=== PATIENT | male | born 1995 | race Hispanic/Latino ===

== ENCOUNTER 2017-06-05 14:23 | Inpatient (IN) | payer BC ==
--- NOTE | 2017-06-05 14:48 | ED PDOC ---
Lower Extremity Pain/Injury Time Seen by Provider: 06/05/17 14:43 Chief Complaint (Nursing): Lower Extremity Problem/Injury Chief Complaint (Provider): Left knee injury History Per: Patient History/Exam Limitations: no limitations Onset/Duration Of Symptoms: Mins Current Symptoms Are (Timing): Still Present Additional History Per: EMS Additional Complaint(s): 21 y/o male brought to the ED by EMS for evaluation of left knee injury sustained just prior to arrival. Patient states while playing soccer today he jumped up and landed on the left leg at a weird angle. Not able to bear weight on the left leg following injury. Pain is rated 6/10. Now c/o left knee pain and swelling. Patient did not receive any pain medications prior to arrival. PMD: provider ADY Past Medical History Reviewed: Historical Data, Nursing Documentation, Vital Signs Vital Signs: Last Vital Signs Temp 98.4 F 06/05/17 14:27 Pulse 78 06/05/17 14:27 Resp 18 06/05/17 14:27 BP 134/75 06/05/17 14:27 Pulse Ox 99 06/05/17 14:27 - Medical History PMH: No Chronic Diseases - Family History Family History: States: Unknown Family Hx - Home Medications Home Medications: Ambulatory Orders Medication Instructions Recorded No Known Home Med 06/05/17 - Allergies Allergies/Adverse Reactions: Allergies Allergy/AdvReac Type Severity Reaction Status Date / Time amoxicillin Allergy RASH Verified 06/05/17 22:14 cefuroxime [From Ceftin] Allergy RASH Verified 06/05/17 22:14 Review of Systems ROS Statement: Except As Marked, All Systems Reviewed And Found Negative Musculoskeletal: Positive for: Other (left knee pain and swelling) Neurological: Positive for: Weakness (difficulty bending left knee secondary to pain). Negative for: Numbness, Other (tingling) Physical Exam - Reviewed Nursing Documentation Reviewed: Yes Vital Signs Reviewed: Yes - Physical Exam Appears: Positive for: No Acute Distress Head Exam: Positive for: ATRAUMATIC, NORMOCEPHALIC Skin: Positive for: Normal Color. Negative for: Rash Eye Exam: Positive for: Normal appearance Extremity: Positive for: Tenderness (Patient describes tenderness diffusely to left knee), Swelling (moderate effusion to left knee), Other (Exam limited secondary to pain) Neurologic/Psych: Positive for: Alert, Oriented (x3) - Laboratory Results Result Diagrams: 06/05/17 15:55 06/05/17 15:55 - ECG O2 Sat by Pulse Oximetry: 99 (RA) Pulse Ox Interpretation: Normal - Progress ED Course And Treament: XR LEFT KNEE: ? fx of tibia GIVEN MORPHINE 4 MG IV x1, TORADOL 15 MG IV x1 Pain uncontrolled. Dilaudid 0.5 mg iv x 1 dose; zofran 4 mg iv x [address] of knee obtained. CT LEFT KNEE: FINDINGS: There is a comminuted impacted fracture of the lateral tibial plateau posterior margins with the posterior half of the tibial plateau impacted up to 2.6 cm deep to its expected cortical location. Fracture plane also crosses to involve the inferior margins of the medial right tibial plateau which is not depressed. The visualized distal femur is intact without fracture as well as the patella. Hemarthrosis is identified within the joint space is well as suprapatellar bursa. No subluxation or dislocation. No suspicious extra capsular findings. The patellar tendon grossly appears intact. IMPRESSION: Gross lateral tibial plateau fracture with comminution and approximate 2.6 cm impaction as described above. No dislocation or subluxation. Cvht-[id number]-arvuwzed hemarthrosis. Findings reviewed and discussed with Roland COFFMAN with written down and read back verification 06/05/2017 4:15 p.m. d/w Dr. Childs. Will place in knee immobilizer. Will order MRI tomorrow for evaluation of injury. Dilaudid 1 mg iv x 1 dose; Time: 18:38 Patient will be admitted inpatient to med/surg for tibial fracture, under the service of Dr. Shannon. Medical Decision Making Medical Decision Making: Impression: Left knee injury Time: 14:45 Plan: --Motrin 600 mg PO --X-ray left knee Patient informed of all diagnostic results. Scribe Attestation: Documented by Karime Bucio, acting as a scribe for Suha Nixon PA-C Provider Scribe Attestation: All medical record entries made by the Scribe were at my direction and personally dictated by me. I have reviewed the chart and agree that the record accurately reflects my personal performance of the history, physical exam, medical decision making, and the department course for this patient. I have also personally directed, reviewed, and agree with the discharge instructions and disposition. Disposition - Clinical Impression Clinical Impression: Fracture of tibia - Patient ED Disposition Is Patient to be Admitted: Yes Discussed With DrXochitl: Kan Shannon Doctor Will See Patient In The: Hospital Counseled Patient/Family Regarding: Studies Performed, Diagnosis - Disposition Disposition Time: 18:38 Condition: FAIR - Pt Status Changed To: Hospital Disposition Of: Inpatient - Admit Certification Admit to Inpatient:: After my assessment, the patient will require hospitalization for at least two midnights. This is because of the severity of symptoms shown, intensity of services needed, and/or the medical risk in this patient being treated as an outpatient. - POA Present On Arrival: Falls Or Trauma
--- NOTE | 2017-06-05 15:18 | RAD ---
PROCEDURE: Left Knee Radiographs. HISTORY: Posttraumatic left knee pain COMPARISON: None. FINDINGS: BONES: Normal. No fracture. JOINTS: Normal. No osteoarthritis. JOINT EFFUSION: None. OTHER FINDINGS: None. IMPRESSION: Normal radiographs of the left knee.
[2017-06-05 16:09] LABS: BASO % 0.3 % (0.0-2.0); EOS # 0.1 K/uL (0.0-0.7); EOS % 0.4 % (0.0-4.0); HEMOGLOBIN 14.2 g/dL (12.0-18.0); LYMPH # 1.3 K/uL (1.0-4.3); LYMPH % 9.5 % (20.0-40.0); MEAN CELL VOLUME 87.3 fl (80.0-94.0); MEAN CORPUSCULAR HEMOGLOBIN 29.8 pg (27.0-31.0); MEAN CORPUSCULAR HGB CONC 34.2 g/dL (33.0-37.0); MEAN PLATELET VOLUME 9.3 fl (7.2-11.7); MONO # 0.8 K/uL (0.0-0.8); MONO % 5.7 % (0.0-10.0); NEUT # 11.6 K/uL (1.8-7.0); NEUT % 84.1 % (50.0-75.0); NRBC % 0.1 % (0.0-0.0); PLATELET COUNT 204 K/uL (130-400); RBC 4.76 Mil/uL (4.40-5.90); RED CELL DISTRIBUTION WIDTH 13.5 % (11.5-14.5); WHITE BLOOD COUNT 13.8 K/uL (4.8-10.8)
[2017-06-05 16:18] LABS: BLOOD UREA NITROGEN 14 mg/dl (9-20); GFR AFRICAN-AMERICAN > 60; GFR NON-AFRICAN AMERICAN > 60
[2017-06-05 16:19] LABS: CALCIUM 9.3 mg/dL (8.4-10.2)
[2017-06-05 16:23] LABS: INR 1.1 (0.9-1.2); PARTIAL THROMBOPLASTIN TIME 29.4 Seconds (25.6-37.1); PROTHROMBIN TIME 12.7 Seconds (9.8-13.1)
[2017-06-05] MEDS ORDERED: HYDROmorphone 0.5 mg/0.5 ml ISec IVP STA ×3 (16:44→19:50)
[2017-06-05] MEDS ORDERED: HYDROmorphone 0.5 mg/0.5 ml ISec ONE ×3 (16:52→19:54)
--- NOTE | 2017-06-05 17:01 | CT ---
PROCEDURE: RIGHT KNEE CT WITHOUT CONTRAST HISTORY: KNEE INJURY COMPARISON: Right knee radiographs 06/05/2017. TECHNIQUE: A volumetric CT acquisition was performed through the right knee without intravenous contrast. Reformatted datasets provided in sagittal, axial and coronal planes. Radiation dose:Total exam DLP = 556.58 mGy-cm.This This CT exam was performed using one or more of the following dose reduction techniques: Automated exposure control, adjustment of the mA and/or kV according to patient size, and/or use of iterative reconstruction technique. FINDINGS: There is a comminuted impacted fracture of the lateral tibial plateau posterior margins with the posterior half of the tibial plateau impacted up to 2.6 cm deep to its expected cortical location. Fracture plane also crosses to involve the inferior margins of the medial right tibial plateau which is not depressed. The visualized distal femur is intact without fracture as well as the patella. Hemarthrosis is identified within the joint space is well as suprapatellar bursa. No subluxation or dislocation. No suspicious extra capsular findings. The patellar tendon grossly appears intact. IMPRESSION: Gross lateral tibial plateau fracture with comminution and approximate 2.6 cm impaction as described above. No dislocation or subluxation. Vybi-[id number] hemarthrosis. Findings reviewed and discussed with Roland COFFMAN with written down and read back verification 06/05/2017 4:15 p.m..
[2017-06-05 17:40] LABS: LYMPHOCYTE 8 % (20-50); MONOCYTE 2 % (0-10); NEUTROPHIL 90 % (42-75); TOTAL CELLS COUNTED 100
[2017-06-05 17:41] LABS: PLATELET ESTIMATE NORMAL (NORMAL)
[2017-06-05] MEDS ORDERED: Tdap Vaccine 0.5 ml Vial (10-64 yrs) IM ONE (17:47)
[2017-06-05] MEDS ORDERED: HYDROmorphone 0.5 mg/0.5 ml ISec IVP PRN (20:19)
[2017-06-05] MEDS ORDERED: HYDROmorphone 0.5 mg/0.5 ml ISec IVP ONE (20:55)
[2017-06-05] MEDS ORDERED: Dextrose 5%/0.45% NS 1,000 ML IV SCH (21:00)
[2017-06-06] MEDS ORDERED: HYDROmorphone 0.5 mg/0.5 ml ISec IVP STA ×2 (01:55→04:43)
[2017-06-06] MEDS ORDERED: Oxycodone/Acetaminophen 5/325 mg Tab PO PRN ×2 (07:46→11:09)
--- NOTE | 2017-06-06 08:27 | MRI ---
MRI left knee History: Knee injury. Comparison: CT scan dated 06/05/2017 Technique: Multi-echo multiplanar sequences were performed through left knee without the use intravenous contrast. Findings: Markedly comminuted and depressed fracture of the lateral tibial plateau with 2.6 centimeter articular surface depression of the lateral proximal tibial plateau. There is a defect in the lateral proximal tibial plateau at the articular surface measuring up to 3.9 centimeters which is displaced inferomedially to the level of the metaphysis. In addition, there are large vertically oriented fracture components extending from the level of the intercondylar notch to the anterior and posterior cortices as well as more laterally to the proximal medullary cavity. Additional fracture component extends at the level of the metaphysis to the medial cortex of the proximal tibia. Prominent thinning and fraying with increased signal seen within the visualized anterior cruciate ligament suggestive for partial tearing with associated grade sprain. Posterior cruciate ligament is preserved. Medial meniscus is preserved. The articular bony surface that approximates the mid to posterior lateral meniscus has been fractured and displaced with a free-floating body and posterior horn of the lateral meniscus noted. Medial collateral ligament is preserved. Complete/near complete tearing of the fibular collateral ligament. Partial tearing of the distal popliteus tendon. Edema and fluid at the level the posterior lateral corner consistent with a posterior-lateral corner injury. Prominent bone bruising and or subchondral fracturing of the mid lateral femoral condyle and posterior lateral proximal fibula. Quadriceps tendon is preserved. Patellar tendon is preserved. Medial patellar retinaculum is preserved. Prominent partial tearing of the lateral patellar retinaculum. Large suprapatellar joint effusion with associated hemarthrosis. Partial tearing within the popliteus muscle belly as well as within the soleus musculature. Prominent fluid and edema seen at the myofascial interface between the soleus as well as the gastrocnemius muscles. Impression: 1. Markedly comminuted and depressed fracture of the lateral tibial plateau with 2.6 centimeter articular surface depression of the lateral proximal tibial plateau. There is a defect in the lateral proximal tibial plateau at the articular surface measuring up to 3.9 centimeters which is displaced inferomedially to the level of the metaphysis. In addition, there are large vertically oriented fracture components extending from the level of the intercondylar notch to the anterior and posterior cortices as well as more laterally to the proximal medullary cavity. Additional fracture component extends at the level of the metaphysis to the medial cortex of the proximal tibia. 2. Prominent thinning and fraying with increased signal seen within the visualized anterior cruciate ligament suggestive for partial tearing with associated grade sprain. 3. The articular bony surface that approximates the mid to posterior lateral meniscus has been fractured and displaced with a free-floating body and posterior horn of the lateral meniscus noted. 4. Complete/near complete tearing of the fibular collateral ligament. Partial tearing of the distal popliteus tendon. Edema and fluid at the level the posterior lateral corner consistent with a posterior-lateral corner injury. 5. Prominent bone bruising and or subchondral fracturing of the mid lateral femoral condyle and posterior lateral proximal fibula. 6. Prominent partial tearing of the lateral patellar retinaculum. 7. Large suprapatellar joint effusion with associated hemarthrosis. 8. Partial tearing within the popliteus muscle belly as well as within the soleus musculature. Prominent fluid and edema seen at the myofascial interface between the soleus as well as the gastrocnemius muscles.
[2017-06-06] MEDS ORDERED: Enoxaparin 40 mg Syringe SC SCH ×2 (09:00)
--- NOTE | 2017-06-06 09:53 | CP.PCM.CON ---
History of Present Illness - History of Present Illness History of Present Illness: Orthopedic consult: Patient is a 21 y/o male who presented to [facility] following a L knee injury yesterday. 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 He experienced a popping sensation and sudden severe pain in his left knee. In the ER, it was determined that he had sustained a left lateral tibial plateau fx, he was placed in a knee immobilizer and Dr. Childs was consulted for orthopedic evaluation. Currently his pain is moderate, rated 6/10 and located diffuse about the knee. The pain is dull, worsens with movement and alleviated with rest. It is associated with swelling and bruising. He denies any other injuries. He denies numbness, tingling and radiation of pain. He denies CP/SOB/N/V/D/CURRY/fever/dysuria/melena. 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 Alcohol: None Drugs: Denies - CARDIAC Hx Cardiac Disorders: No - PULMONARY Hx Respiratory Disorders: No - NEUROLOGICAL Hx Neurological Disorder: No - HEENT Hx HEENT Problems: No - RENAL Hx Chronic Kidney Disease: No - ENDOCRINE/METABOLIC Hx Endocrine Disorders: No - HEMATOLOGICAL/ONCOLOGICAL Hx Blood Disorders: No Hx AIDS: No Hx Human Immunodeficiency Virus (HIV): No - INTEGUMENTARY Hx Dermatological Problems: No - MUSCULOSKELETAL/RHEUMATOLOGICAL Hx Falls: Yes Hx Fractures: Yes - GASTROINTESTINAL Hx Gastrointestinal Disorders: No - GENITOURINARY/GYNECOLOGICAL Hx Genitourinary Disorders: No - PSYCHIATRIC Hx Psychophysiologic Disorder: No Hx Substance Use: No - SURGICAL HISTORY Hx Surgeries: No - ANESTHESIA Hx Anesthesia: No Hx Anesthesia Reactions: No Hx Malignant Hyperthermia: No Has any member of the family had a problem w/ anesthesia?: No Meds Allergies/Adverse Reactions: Allergies Allergy/AdvReac Type Severity Reaction Status Date / Time amoxicillin Allergy RASH Verified 06/05/17 22:14 cefuroxime [From Ceftin] Allergy RASH Verified 06/05/17 22:14 - Medications Medications: Current Medications Enoxaparin Sodium (Lovenox) 40 mg SC DAILY DEYVI PRN Reason: Protocol Last Admin: 06/06/17 09:23 Dose: 40 mg Dextrose/Sodium Chloride (Dextrose 5%/0.45% Ns 1000 Ml) 1,000 mls @ 40 mls/hr IV .Q24H DEYVI Stop: 06/06/17 20:56 Last Admin: 06/05/17 21:21 Dose: 40 mls/hr Morphine Sulfate (Morphine) 2 mg IVP Q4 DEYVI Last Admin: 06/06/17 08:46 Dose: 2 mg Oxycodone/Acetaminophen (Percocet 5/325 Mg Tab) 2 tab PO Q6 PRN PRN Reason: Pain, moderate (4-7) Stop: 06/09/17 07:47 Last Admin: 06/06/17 08:05 Dose: 2 tab Physical Exam - Constitutional Appears: No Acute Distress - Head Exam Head Exam: ATRAUMATIC, NORMOCEPHALIC - Eye Exam Eye Exam: EOMI, Normal appearance, PERRL - ENT Exam ENT Exam: Mucous Membranes Moist, Normal Exam - Respiratory Exam Respiratory Exam: Clear to Auscultation Bilateral, NORMAL BREATHING PATTERN - Cardiovascular Exam Cardiovascular Exam: REGULAR RHYTHM - GI/Abdominal Exam GI & Abdominal Exam: Normal Bowel Sounds, Soft - Extremities Exam Additional comments: LLE: knee immobilizer intact, compression dressings intact, moderate swelling, no lesions, diffuse tenderness sensation intact SP/DP/TN motor intact EHL/FHL/TA/G pedal pulse intact compartments soft NT RLE: no swelling, no lesions, no tenderness sensation intact SP/DP/TN motor intact EHL/FHL/TA/G pedal pulse intact compartments soft NT - Neurological Exam Neurological exam: Alert, Oriented x3 - Psychiatric Exam Psychiatric exam: Normal Affect, Normal Mood - Skin Skin Exam: Normal Color, Warm Results - Vital Signs Recent Vital Signs: Last Vital Signs Temp 99.1 F 06/06/17 09:00 Pulse 67 06/06/17 09:00 Resp 18 06/06/17 09:00 BP 151/69 H 06/06/17 09:00 Pulse Ox 97 06/06/17 09:00 - Labs Result Diagrams: 06/05/17 15:55 06/05/17 15:55 Labs: Laboratory Results - last 24 hr 06/05/17 06/05/17 06/05/17 15:45 15:55 15:55 WBC 13.8 H RBC 4.76 Hgb 14.2 Hct 41.5 MCV 87.3 MCH 29.8 MCHC 34.2 RDW 13.5 Plt Count 204 MPV 9.3 Neut % (Auto) 84.1 H Lymph % (Auto) 9.5 L Collier % (Auto) 5.7 Eos % (Auto) 0.4 Baso % (Auto) 0.3 Neut # (Auto) 11.6 H Lymph # (Auto) 1.3 Collier # (Auto) 0.8 Eos # (Auto) 0.1 Baso # (Auto) 0.0 Neutrophils % (Manual) 90 H Lymphocytes % (Manual) 8 L Monocytes % (Manual) 2 Platelet Estimate Normal RBC Morphology Normal PT INR APTT Sodium 144 Potassium 3.9 Chloride 105 Carbon Dioxide 23 Anion Gap 20 BUN 14 Creatinine 0.7 L Est GFR ( Amer) > 60 Est GFR (Non-Af Amer) > 60 Random Glucose 92 Calcium 9.3 Blood Type A POSITIVE Antibody Screen Negative BBK History Checked No verified bt 06/05/17 15:55 WBC RBC Hgb Hct MCV MCH MCHC RDW Plt Count MPV Neut % (Auto) Lymph % (Auto) Collier % (Auto) Eos % (Auto) Baso % (Auto) Neut # (Auto) Lymph # (Auto) Collier # (Auto) Eos # (Auto) Baso # (Auto) Neutrophils % (Manual) Lymphocytes % (Manual) Monocytes % (Manual) Platelet Estimate RBC Morphology PT 12.7 INR 1.1 APTT 29.4 Sodium Potassium Chloride Carbon Dioxide Anion Gap BUN Creatinine Est GFR ( Amer) Est GFR (Non-Af Amer) Random Glucose Calcium Blood Type Antibody Screen BBK History Checked Assessment & Plan (1) Tibial plateau fracture, left Assessment and Plan: Patient is a 21 y/o male with a comminuted, displaced lateral tibial plateau fx -patient was advised tibial plateau fracture ORIF for OR tomorrow -risks/paulina/adv/disadv of procedure was explained to patient in detail. Patient expresses understanding and agrees to proceed -NPO pMN -PT/OT NWB LLE with crutches -above d/w with Dr. Chilsd in agreement Status: Acute Radiology Interpretation - Personal Computer Network Analyst Personal Computer Network Analyst:: Radiologist - Notes: Notes:: PROCEDURE: Left Knee Radiographs. HISTORY: Posttraumatic left knee pain COMPARISON: None. FINDINGS: BONES: Normal. No fracture. JOINTS: Normal. No osteoarthritis. JOINT EFFUSION: None. OTHER FINDINGS: None. IMPRESSION: Normal radiographs of the left knee. - Radiology Interpretation #2 Interpretation: PROCEDURE: RIGHT KNEE CT WITHOUT CONTRAST HISTORY: KNEE INJURY COMPARISON: Right knee radiographs 06/05/2017. TECHNIQUE: A volumetric CT acquisition was performed through the right knee without intravenous contrast. Reformatted datasets provided in sagittal, axial and coronal planes. Radiation dose:Total exam DLP = 556.58 mGy-cm.This This CT exam was performed using one or more of the following dose reduction techniques: Automated exposure control, adjustment of the mA and/or kV according to patient size, and/or use of iterative reconstruction technique. FINDINGS: There is a comminuted impacted fracture of the lateral tibial plateau posterior margins with the posterior half of the tibial plateau impacted up to 2.6 cm deep to its expected cortical location. Fracture plane also crosses to involve the inferior margins of the medial right tibial plateau which is not depressed. The visualized distal femur is intact without fracture as well as the patella. Hemarthrosis is identified within the joint space is well as suprapatellar bursa. No subluxation or dislocation. No suspicious extra capsular findings. The patellar tendon grossly appears intact. IMPRESSION: Gross lateral tibial plateau fracture with comminution and approximate 2.6 cm impaction as described above. No dislocation or subluxation. [id number] hemarthrosis. Findings reviewed and discussed with Roland COFFMAN with written down and read back verification 06/05/2017 4:15 p.m.. - Radiology Interpretation #3 Interpretation: PROCEDURE: RIGHT KNEE CT WITHOUT CONTRAST HISTORY: KNEE INJURY COMPARISON: Right knee radiographs 06/05/2017. TECHNIQUE: A volumetric CT acquisition was performed through the right knee without intravenous contrast. Reformatted datasets provided in sagittal, axial and coronal planes. Radiation dose:Total exam DLP = 556.58 mGy-cm.This This CT exam was performed using one or more of the following dose reduction techniques: Automated exposure control, adjustment of the mA and/or kV according to patient size, and/or use of iterative reconstruction technique. FINDINGS: There is a comminuted impacted fracture of the lateral tibial plateau posterior margins with the posterior half of the tibial plateau impacted up to 2.6 cm deep to its expected cortical location. Fracture plane also crosses to involve the inferior margins of the medial right tibial plateau which is not depressed. The visualized distal femur is intact without fracture as well as the patella. Hemarthrosis is identified within the joint space is well as suprapatellar bursa. No subluxation or dislocation. No suspicious extra capsular findings. The patellar tendon grossly appears intact. IMPRESSION: Gross lateral tibial plateau fracture with comminution and approximate 2.6 cm impaction as described above. No dislocation or subluxation. [id number] hemarthrosis. Findings reviewed and discussed with Roland COFFMAN with written down and read back verification 06/05/2017 4:15 p.m..
--- NOTE | 2017-06-06 09:56 | RAD ---
PROCEDURE: CHEST RADIOGRAPH, 1 VIEW HISTORY: Preoperative evaluation COMPARISON: None available. FINDINGS: LUNGS: The lungs are well inflated and clear. PLEURA: No pneumothorax or pleural fluid seen. CARDIOVASCULAR: Normal. OSSEOUS STRUCTURES: No significant abnormalities. VISUALIZED UPPER ABDOMEN: Normal. OTHER FINDINGS: None. IMPRESSION: No active pulmonary disease.
--- NOTE | 2017-06-06 10:39 | HP ---
HISTORY OF PRESENT ILLNESS: Mr. Krishnan is a 21-year-old male who was admitted via the emergency room following a left knee injury, which he sustained while playing soccer. He indicates that he tripped on a hard_turf and injured his left knee. He was brought to the emergency room where he complained of severe pain on the scale of 1 to 10, he indicates the pain as 6 to 8. He was evaluated. On CT scan of the left lower extremity, he had gross lateral tibial plateau fracture with comminution and approximately 2.6 cm impaction as described on the CAT scan. No dislocation or subluxation. He had srbw-ei-kvasoymg hemarthrosis. PAST MEDICAL HISTORY: Unremarkable. ALLERGIES: CEFTIN AND AMOXICILLIN. FAMILY HISTORY: Non-revealing. SOCIAL HISTORY: He does not smoke or drink. He is a student of [employer]. REVIEW OF SYSTEMS: Essentially unremarkable. PHYSICAL EXAMINATION: GENERAL: The patient is alert and oriented, but is in distress because of pain. VITAL SIGNS: Blood pressure of 134/75, pulse of 78, and respiratory rate is 18. He is afebrile and O2 saturation is 99% on room air. SKIN: Shows fair turgor. HEENT: Pupils are equal and reactive to light and accommodation. Mouth shows fair hygiene. NECK: JVP flat. LUNGS: Clear. HEART: Regular. No murmurs or gallop. ABDOMEN: Soft and nontender. No organomegaly. EXTREMITIES: Upper extremities appeared normal. Lower extremities: The left knee is wrapped in a surgical gauze and splinted with an ice pack in place. It is tender and difficult to move. RECTAL AND GENITALIA: Deferred. CENTRAL NERVOUS SYSTEM: Grossly intact. LABORATORY DATA: Sodium 144, potassium 3.9, BUN 14, and creatinine 0.7. PT 12.7 and INR 1.1. WBC 13.8, hemoglobin 14.2, and platelet count 204,000. Chest x-ray is pending. CT scan of the left knee already reported. IMPRESSION: Fracture of left lower extremity secondary to trauma. PLAN: The plan is surgical repair of the left lower extremity. Pain management, we will obtain anesthesia consult for pain management and appropriate pain control. The patient was already seen by Dr. Childs, the orthopedic Surgeon and will be taken to the OR for surgical repair of the left knee fracture in the morning after swelling reduces. The patient is medically cleared for surgical repair of the left knee. Kan Shannon MD [email or web address]
--- NOTE | 2017-06-06 13:09 | CP.PCM.CON ---
History of Present Illness - History of Present Illness History of Present Illness: 21 yo male w/ left tibial plateau fracture, surgery scheduled for tomorrow, is referred for pain management. Patient has been placed on Morphine IV and Percocet PO, but the previous regimen wasn't helpful. Morphine was then increased to 4mg q3h PRN but he states it's only helping him for 1-1.5 hours. The pain is mainly over the left knee, sharp, constant, and aggravated with the slightest movement of the leg. He denies chronic pain history or opioid use. He's a smoker but denies substance abuse. 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 Alcohol: None Drugs: Denies - CARDIAC Hx Cardiac Disorders: No - PULMONARY Hx Respiratory Disorders: No - NEUROLOGICAL Hx Neurological Disorder: No - HEENT Hx HEENT Problems: No - RENAL Hx Chronic Kidney Disease: No - ENDOCRINE/METABOLIC Hx Endocrine Disorders: No - HEMATOLOGICAL/ONCOLOGICAL Hx Blood Disorders: No Hx AIDS: No Hx Human Immunodeficiency Virus (HIV): No - INTEGUMENTARY Hx Dermatological Problems: No - MUSCULOSKELETAL/RHEUMATOLOGICAL Hx Falls: Yes Hx Fractures: Yes - GASTROINTESTINAL Hx Gastrointestinal Disorders: No - GENITOURINARY/GYNECOLOGICAL Hx Genitourinary Disorders: No - PSYCHIATRIC Hx Psychophysiologic Disorder: No Hx Substance Use: No - SURGICAL HISTORY Hx Surgeries: No - ANESTHESIA Hx Anesthesia: No Hx Anesthesia Reactions: No Hx Malignant Hyperthermia: No Has any member of the family had a problem w/ anesthesia?: No Meds Allergies/Adverse Reactions: Allergies Allergy/AdvReac Type Severity Reaction Status Date / Time amoxicillin Allergy RASH Verified 06/05/17 22:14 cefuroxime [From Ceftin] Allergy RASH Verified 06/05/17 22:14 - Medications Medications: Current Medications Dextrose/Sodium Chloride (Dextrose 5%/0.45% Ns 1000 Ml) 1,000 mls @ 40 mls/hr IV .Q24H DEYVI Stop: 06/06/17 20:56 Last Admin: 06/05/17 21:21 Dose: 40 mls/hr Morphine Sulfate (Morphine) 4 mg IVP Q3 PRN PRN Reason: Pain, moderate (4-7) Last Admin: 06/06/17 11:44 Dose: 4 mg Oxycodone/Acetaminophen (Percocet 5/325 Mg Tab) 2 tab PO Q4 PRN PRN Reason: Pain, moderate (4-7) Stop: 06/09/17 11:10 Last Admin: 06/06/17 13:03 Dose: 2 tab Physical Exam - Extremities Exam Additional comments: Dressing over left leg intact. TTP. Results - Vital Signs Recent Vital Signs: Last Vital Signs Temp 99.1 F 06/06/17 09:00 Pulse 67 06/06/17 09:00 Resp 18 06/06/17 09:00 BP 151/69 H 06/06/17 09:00 Pulse Ox 97 06/06/17 09:00 - Labs Result Diagrams: 06/05/17 15:55 06/05/17 15:55 Labs: Laboratory Results - last 24 hr 06/05/17 06/05/17 06/05/17 15:45 15:55 15:55 WBC 13.8 H RBC 4.76 Hgb 14.2 Hct 41.5 MCV 87.3 MCH 29.8 MCHC 34.2 RDW 13.5 Plt Count 204 MPV 9.3 Neut % (Auto) 84.1 H Lymph % (Auto) 9.5 L Mccormick % (Auto) 5.7 Eos % (Auto) 0.4 Baso % (Auto) 0.3 Neut # (Auto) 11.6 H Lymph # (Auto) 1.3 Mccormick # (Auto) 0.8 Eos # (Auto) 0.1 Baso # (Auto) 0.0 Neutrophils % (Manual) 90 H Lymphocytes % (Manual) 8 L Monocytes % (Manual) 2 Platelet Estimate Normal RBC Morphology Normal PT INR APTT Sodium 144 Potassium 3.9 Chloride 105 Carbon Dioxide 23 Anion Gap 20 BUN 14 Creatinine 0.7 L Est GFR ( Amer) > 60 Est GFR (Non-Af Amer) > 60 Random Glucose 92 Calcium 9.3 Blood Type A POSITIVE Antibody Screen Negative Crossmatch See Detail BBK History Checked No verified bt 06/05/17 15:55 WBC RBC Hgb Hct MCV MCH MCHC RDW Plt Count MPV Neut % (Auto) Lymph % (Auto) Mccormick % (Auto) Eos % (Auto) Baso % (Auto) Neut # (Auto) Lymph # (Auto) Mccormick # (Auto) Eos # (Auto) Baso # (Auto) Neutrophils % (Manual) Lymphocytes % (Manual) Monocytes % (Manual) Platelet Estimate RBC Morphology PT 12.7 INR 1.1 APTT 29.4 Sodium Potassium Chloride Carbon Dioxide Anion Gap BUN Creatinine Est GFR ( Amer) Est GFR (Non-Af Amer) Random Glucose Calcium Blood Type Antibody Screen Crossmatch BBK History Checked Assessment & Plan (1) Fracture of tibia Assessment and Plan: 21 yo man w/ left tibial plateau fracture. - continue Percocet - continue Morphine 4mg q3h PRN - add Neurontin 300mg q8h to regimen - add Toradol PRN to regimen Status: Acute
[2017-06-07 06:34] LABS: HEMOGLOBIN 13.6 g/dL (12.0-18.0); MEAN CELL VOLUME 88.4 fl (80.0-94.0); MEAN CORPUSCULAR HGB CONC 32.8 g/dL (33.0-37.0); RBC 4.69 Mil/uL (4.40-5.90); RED CELL DISTRIBUTION WIDTH 13.3 % (11.5-14.5); WHITE BLOOD COUNT 7.9 K/uL (4.8-10.8)
[2017-06-07 06:53] LABS: BLOOD UREA NITROGEN 10 mg/dl (9-20); CALCIUM 8.7 mg/dL (8.4-10.2); GFR AFRICAN-AMERICAN > 60; GFR NON-AFRICAN AMERICAN > 60
--- NOTE | 2017-06-07 09:02 | CP.PCM.PN ---
Subjective - Date & Time of Evaluation Date of Evaluation: 06/07/17 Time of Evaluation: 09:02 - Subjective Subjective: L KNEE PAIN LESS SCHEDULED FOR SURGERY TODAY Objective - Vital Signs/Intake and Output Vital Signs (last 24 hours): Temp Pulse Resp BP Pulse Ox 97.8 F 70 16 149/68 98 06/07/17 07:50 06/07/17 07:50 06/07/17 07:50 06/07/17 07:50 06/07/17 07:50 Intake and Output: 06/07/17 06/07/17 06:59 18:59 Intake Total 1480 Output Total 500 Balance 1480 -500 - Medications Medications: Current Medications Gabapentin (Neurontin) 300 mg PO TID DEYVI Last Admin: 06/06/17 20:34 Dose: 300 mg Ketorolac Tromethamine (Toradol) 30 mg IVP Q6 PRN PRN Reason: Pain, moderate (4-7) Last Admin: 06/06/17 19:27 Dose: 30 mg Morphine Sulfate (Morphine) 4 mg IVP Q3 PRN PRN Reason: Pain, moderate (4-7) Last Admin: 06/07/17 07:59 Dose: 4 mg Oxycodone/Acetaminophen (Percocet 5/325 Mg Tab) 2 tab PO Q4 PRN PRN Reason: Pain, moderate (4-7) Stop: 06/09/17 11:10 Last Admin: 06/06/17 13:03 Dose: 2 tab - Labs Labs: 06/07/17 05:50 06/07/17 05:50 PT 12.7 Seconds (9.8-13.1) 06/05/17 15:55 INR 1.1 (0.9-1.2) 06/05/17 15:55 APTT 29.4 Seconds (25.6-37.1) 06/05/17 15:55 - Constitutional Appears: No Acute Distress - Head Exam Head Exam: ATRAUMATIC, NORMAL INSPECTION, NORMOCEPHALIC - Eye Exam Eye Exam: EOMI, Normal appearance, PERRL Pupil Exam: NORMAL ACCOMODATION, PERRL - ENT Exam ENT Exam: Mucous Membranes Moist, Normal Exam - Neck Exam Neck Exam: Full ROM, Normal Inspection. absent: Lymphadenopathy - Respiratory Exam Respiratory Exam: Clear to Ausculation Bilateral, NORMAL BREATHING PATTERN - Cardiovascular Exam Cardiovascular Exam: REGULAR RHYTHM, +S1, +S2. absent: Murmur - GI/Abdominal Exam GI & Abdominal Exam: Soft, Normal Bowel Sounds. absent: Tenderness - Rectal Exam Rectal Exam: NORMAL INSPECTION - Extremities Exam Extremities Exam: Full ROM, Normal Capillary Refill, Normal Inspection, Tenderness. absent: Joint Swelling, Pedal Edema Additional comments: L KNEE - Back Exam Back Exam: NORMAL INSPECTION - Neurological Exam Neurological Exam: Alert, Awake, CN II-XII Intact, Normal Gait, Oriented x3 - Psychiatric Exam Psychiatric exam: Normal Affect, Normal Mood - Skin Skin Exam: Dry, Intact, Normal Color, Warm Assessment and Plan - Assessment and Plan (Free Text) Assessment: L TIBIAL FRACTURE Plan: ORTHOPEDIC SURGERY TODAY ANALGESICS FOR PAIN PT/OT EVAL MEDICALLY CLEARED FOR SURGERY
[2017-06-07] MEDS ORDERED: Lidocaine 2% Inj (20ml) ONE (10:51)
[2017-06-07] MEDS ORDERED: Absorbable Gelatin Sponge Size 100 ONE (10:52)
[2017-06-07] MEDS ORDERED: Bupivacaine 0.5% Inj(30mL) ONE (10:52)
[2017-06-07] MEDS ORDERED: Thrombin Topical 5,000 Int Units Spray Kit ONE (10:52)
[2017-06-07] MEDS ORDERED: Bacitracin Ointment 30 GM TUBE ONE (10:52)
[2017-06-07] MEDS ORDERED: Lidocaine 1% 5ml Abboject IV ONE (10:54)
[2017-06-07] MEDS ORDERED: Midazolam 2 MG/2 ML VIAL ONE (10:54)
[2017-06-07] MEDS ORDERED: Succinylcholine 200 mg/10 ml Inj IV ONE (10:54)
[2017-06-07] MEDS ORDERED: Propofol 10 mg/ml Inj (20 ML) ONE (10:54)
[2017-06-07] MEDS ORDERED: Lidocaine 4% (Laryng-O-Jet) Kit MM ONE (10:54)
[2017-06-07] MEDS ORDERED: Neostigmine 1:1000 (1 mg/ml) Inj ONE (11:05)
[2017-06-07] MEDS ORDERED: Rocuronium 10 mg/ml (5 ml) ONE (11:06)
[2017-06-07] MEDS ORDERED: Clindamycin 600mg/50ml NS 0 MG/0 ML BAG IVPB ONE (11:55)
[2017-06-07] MEDS ORDERED: Lactated Ringer's 1,000 ML IV ONE ×2 (13:20→16:45)
[2017-06-07] MEDS ORDERED: Morphine 1 mg/ml preservative-free Inj(Duramorph) ONE (13:24)
[2017-06-07] MEDS ORDERED: Dexamethasone 4 mg/1 ml ONE (13:53)
[2017-06-07] MEDS ORDERED: Sevoflurane - Inhalation Anesthetic Liq (250 ml) ONE (15:15)
[2017-06-07] MEDS ORDERED: Absorbable Gelatin Sponge Size 100 TP ONE (15:23)
[2017-06-07] MEDS ORDERED: Thrombin Topical 5,000 Int Units Spray Kit TOP ONE (15:24)
[2017-06-07] MEDS ORDERED: Bacitracin OINT 15GM TOP ONE (16:45)
--- NOTE | 2017-06-07 17:08 | PCM.SURG1 ---
Surgeon's Initial Post Op Note - Surgeon's Notes Surgeon: Amadeo Campaign Assistant: JIMBO Gold/ Vannesa Foreman PA-C Type of Anesthesia: General Endo Anesthesia Administered By: DR. Long/DR Graves Pre-Operative Diagnosis: Lateral tibial plateau fx L Knee Operative Findings: as above Post-Operative Diagnosis: as above. depression lateral tibial plateau Operation Performed: ORIF lateral tibial plateau fx. repair lateral meniscus. arthrotomy/synovectomy. allograft/autograft bone graft Specimen/Specimens Removed: cartilage/ synovium Estimated Blood Loss: EBL {In ML}: 60 Blood Products Given: N/A Drains Used: No Drains Post-Op Condition: Good Date of Surgery/Procedure: 06/07/17 Time of Surgery/Procedure: 14:55 (time in room 89330/anaesthesia indcution time 1320)
[2017-06-07] MEDS ORDERED: DiphenhydrAMINE 50 mg/ml Inj IVP PRN (17:16)
[2017-06-07] MEDS ORDERED: Oxycodone/Acetaminophen 5/325 mg Tab PO PRN (17:16)
[2017-06-07] MEDS: Lactated Ringer's 1,000 ML IV SCH (19:03)
[2017-06-07] MEDS: oxyCODONE 10 mg ER Tab (oxyCONTIN) PO SCH (20:50)
--- NOTE | 2017-06-07 21:53 | CP.PCM.PN ---
Subjective - Date & Time of Evaluation Date of Evaluation: 06/07/17 Time of Evaluation: 21:31 - Subjective Subjective: Pain management: Anesthesia called for patient having uncontrolled pain s/p ORIF left tibial plateau fracture. Patient currently complaining of severe pain in the left medial knee that is 10/10 in severity, localized and constant ,despite having spinal anesthesia with duramorph for the operation. Patient seen and assessed. Patient does report having some tingling in the toes however no pain on passive movements. Dorsalis pedis and posterior tibial artery pulses palpable. business analytics specialist Dr. Ruiz consulted and recommended patient to be placed on oxycontin 10mg PO [id number] and also to continue with morphine 2mg IV PRN Q3H and neurontin 300mg TID. Dr. Childs was made aware of the findings and plan. Objective - Vital Signs/Intake and Output Vital Signs (last 24 hours): Temp Pulse Resp BP Pulse Ox 98 F 89 20 135/60 98 06/07/17 18:57 06/07/17 18:57 06/07/17 18:57 06/07/17 18:57 06/07/17 18:57 Intake and Output: 06/07/17 06/08/17 18:59 06:59 Intake Total 1606 Output Total 800 Balance 806 - Medications Medications: Current Medications Acetaminophen (Tylenol 325mg Tab) 650 mg PO Q4 PRN PRN Reason: Fever 101 degrees fahrenheit Calcium Carbonate (Oscal) 500 mg PO DAILY [facility] Cholecalciferol (Vitamin D) 2,000 intlu PO DAILY [facility] Diphenhydramine HCl (Benadryl) 50 mg IVP Q6 PRN PRN Reason: Itching / Pruritus Docusate Sodium (Colace) 100 mg PO BID [facility] Gabapentin (Neurontin) 300 mg PO TID [facility] Last Admin: 06/07/17 20:50 Dose: 300 mg Lactated Ringer's (Lactated Ringer's) 1,000 mls @ 125 mls/hr IV .Q8H [facility] Last Admin: 06/07/17 19:03 Dose: Not Given Ketorolac Tromethamine (Toradol) 30 mg IVP Q6 PRN PRN Reason: Pain, moderate (4-7) Last Admin: 06/07/17 20:50 Dose: 30 mg Morphine Sulfate (Morphine) 4 mg IVP Q3 PRN PRN Reason: Pain, moderate (4-7) Last Admin: 06/07/17 19:49 Dose: 4 mg Ondansetron HCl (Zofran Inj) 4 mg IVP ONCE PRN PRN Reason: Nausea/Vomiting Oxycodone HCl (Oxycontin Extended Release Tab) 10 mg PO Q8 DEYVI Stop: 06/10/17 20:41 Last Admin: 06/07/17 20:50 Dose: 10 mg - Labs Labs: 06/07/17 05:50 06/07/17 05:50 PT 12.7 Seconds (9.8-13.1) 06/05/17 15:55 INR 1.1 (0.9-1.2) 06/05/17 15:55 APTT 29.4 Seconds (25.6-37.1) 06/05/17 15:55
[2017-06-08] MEDS ORDERED: oxyCODONE 10 mg ER Tab (oxyCONTIN) PO SCH ×2 (01:00→05:00)
[2017-06-08] MEDS: oxyCODONE 10 mg ER Tab (oxyCONTIN) PO SCH (01:00)
[2017-06-08] MEDS ORDERED: DiphenhydrAMINE 50 mg/ml Inj ONE (03:27)
[2017-06-08] MEDS: Lactated Ringer's 1,000 ML IV SCH ×3 (03:45→10:57)
[2017-06-08 06:47] LABS: HEMOGLOBIN 12.2 g/dL (12.0-18.0); MEAN CELL VOLUME 86.4 fl (80.0-94.0); MEAN CORPUSCULAR HEMOGLOBIN 29.3 pg (27.0-31.0); MEAN CORPUSCULAR HGB CONC 33.9 g/dL (33.0-37.0); RBC 4.16 Mil/uL (4.40-5.90); RED CELL DISTRIBUTION WIDTH 13.3 % (11.5-14.5); WHITE BLOOD COUNT 11.2 K/uL (4.8-10.8)
[2017-06-08 07:39] LABS: BLOOD UREA NITROGEN 13 mg/dl (9-20); CALCIUM 8.5 mg/dL (8.4-10.2); GFR AFRICAN-AMERICAN > 60; GFR NON-AFRICAN AMERICAN > 60
--- NOTE | 2017-06-08 07:56 | CP.PCM.PN ---
Subjective - Date & Time of Evaluation Date of Evaluation: 06/08/17 Time of Evaluation: 07:55 - Subjective Subjective: Patient was seen and examined at bedside comfortable. Severe pain experienced last night, anesthesia was called, medication changed. Pain is controlled this AM. No new complaints. Objective - Vital Signs/Intake and Output Vital Signs (last 24 hours): Temp Pulse Resp BP Pulse Ox 99.8 F H 103 H 17 137/68 96 06/08/17 03:00 06/08/17 03:00 06/08/17 03:00 06/08/17 03:00 06/08/17 03:00 - Medications Medications: Current Medications Acetaminophen (Tylenol 325mg Tab) 650 mg PO Q4 PRN PRN Reason: Fever 101 degrees fahrenheit Calcium Carbonate (Oscal) 500 mg PO DAILY [facility] Cholecalciferol (Vitamin D) 2,000 intlu PO DAILY [facility] Diphenhydramine HCl (Benadryl) 50 mg IVP Q6 PRN PRN Reason: Itching / Pruritus Last Admin: 06/08/17 03:32 Dose: 50 mg Docusate Sodium (Colace) 100 mg PO BID [facility] Gabapentin (Neurontin) 300 mg PO TID [facility] Last Admin: 06/07/17 20:50 Dose: 300 mg Lactated Ringer's (Lactated Ringer's) 1,000 mls @ 125 mls/hr IV .Q8H [facility] Last Admin: 06/08/17 06:23 Dose: 125 mls/hr Ketorolac Tromethamine (Toradol) 30 mg IVP Q6 PRN PRN Reason: Pain, moderate (4-7) Last Admin: 06/08/17 02:47 Dose: 30 mg Morphine Sulfate (Morphine) 4 mg IVP Q3 PRN PRN Reason: Pain, moderate (4-7) Last Admin: 06/08/17 01:22 Dose: 4 mg Ondansetron HCl (Zofran Inj) 4 mg IVP ONCE PRN PRN Reason: Nausea/Vomiting Oxycodone HCl (Oxycontin Extended Release Tab) 10 mg PO Q8H [facility] Stop: 06/10/17 20:41 Last Admin: 06/08/17 04:24 Dose: 10 mg - Labs Labs: 06/08/17 06:20 06/08/17 06:20 PT 12.7 Seconds (9.8-13.1) 06/05/17 15:55 INR 1.1 (0.9-1.2) 06/05/17 15:55 APTT 29.4 Seconds (25.6-37.1) 06/05/17 15:55 - Extremities Exam Additional comments: L knee: Dressings CDI, knee imm intact, + diffuse tenderness 2nd to surgery sensation intact SP/DP/TN motor intact EHL/FHL/TA/G pedal pulses intact comp soft NT Assessment and Plan (1) Tibial plateau fracture, left Assessment & Plan: POD#1 s/p L lateral tibial plateau fx ORIF -pain control as per anesthesia (oxycontin 10mg q8, may increase to 20 mg, percocet 5/325mg 1-2 tabs Q6 prn breakthrough pain) -continue compressive dressings -DO NOT REMOVE KNEE IMMOBILIZER until f/u office visit with Dr. Childs -PT/OT NWB LLE with crutches -DVT ppx with ASA 81 mg BID -clear to d/c to home from ortho standpoint -above d/w Dr. Childs in agreement Status: Acute
[2017-06-08 07:59] VITALS: BP 137/67; PULSE 98; RESP 20; O2SAT 98
--- NOTE | 2017-06-08 08:59 | CP.PCM.DIS ---
Provider - Provider Date of Admission: 06/05/17 18:38 Attending physician: Kan Shannon MD Time Spent in preparation of Discharge (in minutes): 30 Diagnosis - Discharge Diagnosis (1) Fracture of tibia Status: Acute (2) Tibial plateau fracture, left Status: Acute Hospital Course - Lab Results Lab Results: Most Recent Lab Values WBC 11.2 K/uL (4.8-10.8) H 06/08/17 06:20 RBC 4.16 Mil/uL (4.40-5.90) L 06/08/17 06:20 Hgb 12.2 g/dL (12.0-18.0) 06/08/17 06:20 Hct 35.9 % (35.0-51.0) 06/08/17 06:20 MCV 86.4 fl (80.0-94.0) D 06/08/17 06:20 MCH 29.3 pg (27.0-31.0) 06/08/17 06:20 MCHC 33.9 g/dL (33.0-37.0) 06/08/17 06:20 RDW 13.3 % (11.5-14.5) 06/08/17 06:20 Plt Count 165 K/uL (130-400) 06/08/17 06:20 MPV 9.3 fl (7.2-11.7) 06/05/17 15:55 Neut % (Auto) 84.1 % (50.0-75.0) H 06/05/17 15:55 Lymph % (Auto) 9.5 % (20.0-40.0) L 06/05/17 15:55 Thurston % (Auto) 5.7 % (0.0-10.0) 06/05/17 15:55 Eos % (Auto) 0.4 % (0.0-4.0) 06/05/17 15:55 Baso % (Auto) 0.3 % (0.0-2.0) 06/05/17 15:55 Neut # (Auto) 11.6 K/uL (1.8-7.0) H 06/05/17 15:55 Lymph # (Auto) 1.3 K/uL (1.0-4.3) 06/05/17 15:55 Thurston # (Auto) 0.8 K/uL (0.0-0.8) 06/05/17 15:55 Eos # (Auto) 0.1 K/uL (0.0-0.7) 06/05/17 15:55 Baso # (Auto) 0.0 K/uL (0.0-0.2) 06/05/17 15:55 Neutrophils % (Manual) 90 % (42-75) H 06/05/17 15:55 Lymphocytes % (Manual) 8 % (20-50) L 06/05/17 15:55 Monocytes % (Manual) 2 % (0-10) 06/05/17 15:55 Platelet Estimate Normal (NORMAL) 06/05/17 15:55 RBC Morphology Normal (NORMAL) 06/05/17 15:55 PT 12.7 Seconds (9.8-13.1) 06/05/17 15:55 INR 1.1 (0.9-1.2) 06/05/17 15:55 APTT 29.4 Seconds (25.6-37.1) 06/05/17 15:55 Sodium 140 mmol/l (132-148) 06/08/17 06:20 Potassium 4.0 MMOL/L (3.6-5.0) 06/08/17 06:20 Chloride 103 mmol/L (98-107) 06/08/17 06:20 Carbon Dioxide 25 mmol/L (22-30) 06/08/17 06:20 Anion Gap 16 (10-20) 06/08/17 06:20 BUN 13 mg/dl (9-20) 06/08/17 06:20 Creatinine 0.8 mg/dl (0.8-1.5) 06/08/17 06:20 Est GFR ( Amer) > 60 06/08/17 06:20 Est GFR (Non-Af Amer) > 60 06/08/17 06:20 Random Glucose 115 mg/dL (75-110) H 06/08/17 06:20 Calcium 8.5 mg/dL (8.4-10.2) 06/08/17 06:20 25-OH Vitamin D Total 19.8 NG/ML (30.0-100.0) L 06/07/17 05:50 Blood Type A POSITIVE 06/05/17 15:45 Blood Type Confirm A POSITIVE 06/05/17 13:20 Antibody Screen Negative 06/05/17 15:45 Crossmatch See Detail 06/05/17 15:45 BBK History Checked No verified bt 06/05/17 15:45 - Hospital Course Hospital Course: STILL HAS L LEG/KNEE PAINS BUT LESS Discharge Exam - Head Exam Head Exam: ATRAUMATIC, NORMAL INSPECTION, NORMOCEPHALIC - Eye Exam Eye Exam: EOMI, Normal appearance, PERRL Pupil Exam: NORMAL ACCOMODATION, PERRL - GI/Abdominal Exam GI & Abdominal Exam: Normal Bowel Sounds - Rectal Exam Rectal Exam: NORMAL INSPECTION - Extremities Exam Extremities exam: tenderness Additional comments: L LEG/KNEE - Neurological Exam Neurological exam: Alert, CN II-XII Intact, Normal Gait, Oriented x3, Reflexes Normal - Psychiatric Exam Psychiatric exam: Normal Affect, Normal Mood - Skin Skin Exam: Dry, Intact, Normal Color, Warm Discharge Plan - Follow Up Plan Condition: FAIR Disposition: HOME/ ROUTINE Patient education suggested?: Yes Instructions: How to Wash Your Hands Properly, Tibia Fracture Additional Instructions: DISCHARGE TODAY FOLLOW UP WITH DR FISHER IN 1 WEEK
[2017-06-08] MEDS ORDERED: Cholecalciferol 1,000 INTLU TAB PO SCH (09:00)
[2017-06-08 09:09] VITALS: TEMP 99.1
--- NOTE | 2017-06-08 11:03 | OP ---
PROCEDURE DATE: 06/07/2017 LOCATION: [facility]. PREOPERATIVE DIAGNOSIS: Depressed comminuted lateral tibial plateau fracture of the left knee. POSTOPERATIVE DIAGNOSES: Depressed comminuted lateral tibial plateau fracture of the left knee and 2.9-cm depression lateral tibial plateau, synovitis, and lateral meniscal separation. OPERATIVE FINDINGS As above. OPERATION PERFORMED: 1. Open reduction and internal fixation of lateral tibial plateau fracture with Norian allograft. 2. Primary repair of lateral meniscus. Arthrotomy repair of lateral meniscus. 3. Arthrotomy, synovectomy. 4. Autograft, allograft, and bone graft. 5. applx Sami Steel compression dressing 6.Posiitong of fluor/interpreation of video images SURGEON: Calos Childs MD HOME HEALTH CLINICIAN: Caitlin Quiros, certified registered nursing, radiology physician assistant. SECOND RUBBER MOULDING MACHINE OPERATOR: Ant Foreman PA-C SPECIMENS REMOVED: Healing callus, cartilage, synovium. ESTIMATED BLOOD LOSS: 60 mL. BLOOD PRODUCTS: No blood products given. DRAINS: None. POSTOPERATIVE CONDITION: Stable. DATE OF SURGERY: 06/07/2017 TIME OF SURGERY: Incision time 14:55 hours, time in the room anesthesia induction time 13:20 hours. 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 The patient noted jumping up in trying to head-butt a ball, landed with a torsional injury to the left knee driving the lateral femoral condyle to the tibial plateau. The patient is admitted through the ER and stabilized as an emergency. Pros, cons, risks, and benefits of surgical repair were discussed. The possibility of mechanical failure, infection, thromboembolic disease, secondary tertiary surgery were discussed. The patient wished the surgery to be accomplished. The situation was also discussed with his mother. DESCRIPTION OF PROCEDURE: After having obtained informed consent, after having identified side, site and procedure, and critical pause/time-out, after the satisfactory induction of the anesthetic, the patient identified as Jignesh Krishnan in the supine position with all bony prominences were well padded. The left lower extremity was prepped and free draped in usual fashion for extremity surgery. The tourniquet had been applied, but was not yet inflated. After exsanguinating the limb using a 6-inch Esmarch bandage, tourniquet which had been applied was inflated to 350 mmHg. An incision was described one fingerbreadth lateral to the tibial spine. Under the surgeon's direction, the fluoroscope was positioned, video images were generated and therapeutic decisions were made therefrom. This having been accomplished under fluoroscopic control the tibial plateau was identified. The incision was described from the tibial spine superficial to the joint line. The incision was described from the tibial spine to the lateral compartment of the knee. This having been accomplished. After exsanguinating the limb using a 6-inch Esmarch bandage, tourniquet which had been applied was inflated to 350 mmHg. The incision described was accomplished. The skin incision was carried down through the skin and subcutaneous tissue. Great care was taken to keep the flaps thick and flap was dropped identifying and exposing the lateral compartment and great care was taken to not use retractors to protect the skin. Stay sutures were applied, the lateral compartment musculature was elevated and it was turndown. The stay sutures were accomplished again under the surgeon's direction, the fluoroscope was positioned, video images were generated, therapeutic decisions were made therefrom. The spinal needles were used at the junction between the tibial plateau and the meniscus. This having been accomplished, the stay sutures having been applied, drill bit was employed under fluoroscopic control to the area of the depression of the tibial plateau which on CT scan measures approximately 2.8 cm. This having been accomplished, the appropriate entry ankle was identified and at that point in time, a window from the proximal lateral tibia was accomplished using the oscillating saw about approximately 1.5 cm in a trapezoidal fashion. This having been accomplished, the window was removed and saved to be used later as an autograft bone graft. There was some cancellus bone which was removed as well and that was saved also for autograft bone grafting. This having been accomplished, great care was taken with the edwina to carefully dissect medial to the midline to locate the depressed tibial plateau fracture laterally. This having been accomplished, the fragment was identified and the fragment was carefully elevated initially with a tonsil clamp and then it went in position impacted carefully with a bone tamp. Verification of position was offered on AP and lateral image intensification views. It should be noted at this point in time that with the plateau elevated, a combination of autograft bone graft, allograft bone graft, and 20 mL of Norian were used as bone graft and bone graft substitute to fill the void secondary to the depression of the lateral tibial plateau. This having been accomplished, the wound was thoroughly irrigated, the Norian was allowed to set, the elevation of the plateau was found to be virtually anatomic. The lateral six-hole lateral tibial plateau plate was affixed to the lateral aspect of the tibia and each sequential drill hole was drilled, sounded with the depth gauge and the appropriate size screw was placed in the locking mode. Six cortices were placed in the plate as well as the proximal screws were placed to the plate as well. This having been accomplished, the kickstand screw was employed, verification of position was offered on AP and lateral image intensification views. The kickstand screw was found to be long, so the 70 mm screw was replaced with the 60 mm. It should be noted that prior to application of the plate autograft bone grafting of the window, it was placed back to the lateral aspect of the tibia and further bone grafting was employed around it. This having been accomplished, the plate was applied and internal fixation of the fracture was accomplished as described. The sequential drill hole was drilled, sounded with the depth gauge and the appropriate size screw was placed. It should be noted that this very great complexity modifier for the operation because of the difficulty in identifying the tibial plateau and keeping the tibial plateau intact and then elevating the tibial plateau. Through the window, the elevation of the tibial plateau was accomplished and again autograft bone grafting was accomplished to close the window prior to application of the plate. The plate having been applied, the wound was thoroughly irrigated. Arthrotomy of the knee had been accomplished with the plane under the coronary ligaments having been divided using number 15 blade and the joint was entered. Partial synovectomy was accomplished and the wound was thoroughly irrigated. This having been accomplished with the knee in extension, the lateral meniscus was repaired to the plate and to the surrounding local tissue with Arthrex fiber wire. The fiber wire was introduced into the meniscus and that was brought through the plate and to the soft tissue superior and inferior to the tibial plateau in the area of the coronary ligaments. This having been accomplished, the lateral meniscus having been repaired, the wound was thoroughly irrigated. The tourniquet was deflated. Hemostasis was controlled. The lateral anterior tibial musculature, which had been taken down was repaired carefully to the periosteum and the surrounding cuff of tissue very loosely so as not to offer the possibility of compartment syndrome. This having been accomplished, verification of position was offered on AP and lateral image intensification views. Closure was in layers with interrupted Vicryl and luna. No necessity for drain. Sami Steel compression dressing and knee immobilizer was applied. Postoperative x-rays revealed excellent position of the construct. It should be noted that nursing radiology physician assistant, Caitlin Quiros and AUGUSTUS Foreman were necessary to the completion of the operation. OPERATIVE PROCEDURE: Again: 1. Open reduction internal fixation lateral tibial plateau fracture. 2. Repair of lateral meniscus. 3. Autograft, allograft bone graft. 4. Arthrotomy and synovectomy. 5. Positioning of fluoroscope interpretation of video images. 6. Application of Sami Steel compression dressing and knee immobilizer. It should be noted that after closure, a careful bulky Sami Steel compression dressing and knee immobilizer were applied. Calos Childs MD MTDMarisel
--- NOTE | 2017-06-08 11:11 | RAD ---
PROCEDURE: Left Knee Radiographs. HISTORY: Pain. COMPARISON: Left knee radiographs 06/05/2017. FINDINGS: BONES: A status post open reduction internal fixation of proximal left tibial fracture with grossly depressed lateral tibial plateau fracture treated by a lateral compression plate and multiple stabilizing screws. Skin luna are identified in position and postop soft tissue changes in the lateral knee. No dislocation or subluxation in the interval. JOINTS: As above. JOINT EFFUSION: As above. OTHER FINDINGS: None. IMPRESSION: Status post ORIF depressed lateral tibial plateau fracture left knee as per above.
--- NOTE | 2017-06-08 11:13 | RAD ---
PROCEDURE: Radiographs of the left tibia and fibula. HISTORY: s/p tib/fib orif COMPARISON: None available. TECHNIQUE: Frontal and lateral views obtained. FINDINGS: BONES: Proximal left tibial fracture is evaluated separately left knee radiograph also performed 06/07/2017. Please separate report. Tibia is intact throughout. JOINT SPACES: Unremarkable. OTHER FINDINGS: None. IMPRESSION: Unremarkable left fibula. Postop changes left tibia as discussed in separate left knee radiograph 06/07/2017. Please separate report.
--- NOTE | 2017-06-08 17:00 | RAD ---
PROCEDURE: Fluoroscopy up to 1 hr. HISTORY: LEFT TIBIAL PLATEAU COMPARISON: None TECHNIQUE: Standard protocol for this study/examination. FINDINGS: Total fluoroscopic time (continuous mode) utilized during the procedure 36.9 (seconds). Total exam DLP: (mGy) 1.49 IMPRESSION: Less than 1 hr fluoroscopic time utilized during performance of the procedure.
== END 2017-06-08 12:57 | disposition home or self-care (01) | DRG 488 ==
LOC: H.ER 14:23 → H.ERHOLD 18:38 → H.PEDS 20:34 → H.MEDSURG1 06-07 18:45
PROVIDERS: ADMIT Internal Medicine Pulmonary Disease; ATTEND Internal Medicine Pulmonary Disease
PROC: 0QSH34Z Reposition Left Tibia with Internal Fixation Device, Percutaneous Approach (ICD-10-PCS; principal; 2017-06-05)
PROC: 0SBD4ZZ Excision of Left Knee Joint, Percutaneous Endoscopic Approach (ICD-10-PCS; 2017-06-05)
PROC: 0QU Lower Bones, Supplement (ICD-10-PCS; 2017-06-05)
PROC: 0SQD4ZZ Repair Left Knee Joint, Percutaneous Endoscopic Approach (ICD-10-PCS; 2017-06-05)
DX: S82.142A Displaced bicondylar fracture of left tibia, initial encounter for closed fracture (principal); M25.08 Hemarthrosis, other specified site; Y92.322 Soccer field as the place of occurrence of the external cause; Y93.66 Activity, soccer; X58.XXXA Exposure to other specified factors, initial encounter; F17.200 Nicotine dependence, unspecified, uncomplicated; M65.862 Other synovitis and tenosynovitis, left lower leg; F32.9 Major depressive disorder, single episode, unspecified